=== PATIENT | male | born 1965 | race Two or more races ===

== ENCOUNTER 2017-12-04 10:07 | Emergency (ER) | payer BC ==
--- NOTE | 2017-12-04 11:50 | EDM.PDOC ---
ED HPI GENERAL MEDICAL PROBLEM - General Chief Complaint: General Stated Complaint: MOUTH PAIN Time Seen by Provider: 12/04/17 11:25 Source of Information: Reports: Patient, Family History Limitations: Reports: No Limitations - History of Present Illness INITIAL COMMENTS - FREE TEXT/NARRATIVE: c/o tooth pain x 2d a little worse, has apt with dentist [place] next week says he took Advil x 1 that did not help, daughter says he took Advil x 3 pt speaks uzbek, daughter speaks divehi no visible cavity, he points to pain localized immediately above the tooth, c/w abscess R upper jaw Pain Score (Numeric/FACES): 7 - Related Data Allergies Allergy/AdvReac Type Severity Reaction Status Date / Time No Known Allergies Allergy Verified 12/04/17 10:17 Home Meds: Home Meds Aspirin [Adult Low Dose Aspirin EC] 81 mg PO DAILY 12/04/17 [History] Carvedilol [Coreg] 25 mg PO BID 12/04/17 [History] Lisinopril [Zestril] 20 mg PO DAILY 12/04/17 [History] Penicillin V Potassium 500 mg PO TID #21 tab 12/04/17 [Rx] metFORMIN [Glucophage] 1,000 mg PO BIDMEALS 12/04/17 [History] traMADol HCl [Ultram] 50 mg PO Q6H PRN #6 tablet 12/04/17 [Rx] ED ROS GENERAL - Review of Systems Review Of Systems: See Below Constitutional: Reports: No Symptoms HEENT: Reports: Dental Pain Respiratory: Reports: No Symptoms Cardiovascular: Reports: No Symptoms Endocrine: Reports: No Symptoms GI/Abdominal: Reports: No Symptoms : Reports: No Symptoms Musculoskeletal: Reports: No Symptoms Skin: Reports: No Symptoms Neurological: Reports: No Symptoms Psychiatric: Reports: No Symptoms Hematologic/Lymphatic: Reports: No Symptoms Immunologic: Reports: No Symptoms ED EXAM, GENERAL - Physical Exam Exam: See Below Exam Limited By: No Limitations General Appearance: Alert Throat/Mouth: Other (teeth #1-3 missing, #4 appears intact, gum wnl, mild tender on palpation of tooth and gum laterally but not medially, no STS, no LNs) Neck: Normal Inspection, Supple, Non-Tender, Full Range of Motion. No: Lymphadenopathy (R), Lymphadenopathy (L) Respiratory/Chest: No Respiratory Distress Cardiovascular: Regular Rate, Rhythm Course - Vital Signs Last Recorded V/S: Last Vital Signs Temp 36.4 C 12/04/17 10:12 Pulse 57 L 12/04/17 10:12 Resp 18 12/04/17 10:12 BP 141/92 H 12/04/17 10:12 Pulse Ox 100 12/04/17 10:12 Departure - Departure Time of Disposition: 11:48 Disposition: Home, Self-Care 01 Condition: Good Clinical Impression: Dental abscess - Discharge Information Prescriptions: Penicillin V Potassium 500 mg PO TID #21 tab traMADol HCl [Ultram] 50 mg PO Q6H PRN #6 tablet PRN Reason: Pain Instructions: Dental Abscess Referrals: Montrell Maki MD [Primary Care Provider] - Forms: ED Department Discharge, ED Return to Work/School Form Additional Instructions: For infection, take penicillin VK 500 mg 1 tab 3 times a day for 7 days. For pain, take ibuprofen 200 mg 3 tabs and acetaminophen 500 mg 2 tabs 4 times a day for 2 days, longer if needed. For pain, may also take tramadol 50 mg 1 tab every 6 hours as needed. No alcohol. May work tomorrow. See your dentist next week as scheduled. Return to emergency department if you are feeling worse. Para la infeccin, tome la penicilina VK 500 mg 1 TAB 3 veces al da mariangel 7 junior. Para el dolor, tome ibuprofeno 200 mg 3 Tabs y acetaminofn 500 mg 2 Tabs 4 veces al da mariangel 2 junior, ms tiempo si es necesario. Para el dolor, tambin puede manjinder tramadol 50 mg 1 Tab cada 6 horas segn sea necesario. [place] de alcohol. Maana puede trabajar. Consulte a chandra dentista la prxima semana chelsie est programado. Regrese al Departamento de emergencias si se siente peor.
== END 2017-12-04 12:04 | disposition home or self-care (01) ==
LOC: FB.ED 10:07
DX: K04.7 Periapical abscess without sinus (principal); Z79.82 Long term (current) use of aspirin; Z79.899 Other long term (current) drug therapy
CPT/HCPCS: 99282

== ENCOUNTER 2020-10-11 18:32 | Emergency (ER) | payer BC, MEDICAID ==
--- NOTE | 2020-10-11 19:40 | EDM.PDOC ---
ED HPI GENERAL MEDICAL PROBLEM - General Chief Complaint: Eye Problems Stated Complaint: PAIN IN OUTER RIGHT EYE Time Seen by Provider: 10/11/20 19:35 Source of Information: Reports: Patient History Limitations: Reports: No Limitations (Son translated) - History of Present Illness INITIAL COMMENTS - FREE TEXT/NARRATIVE: Patient went outside to smoke @2 hours ago, and after coming back inside felt pain and a foreign body sensation underneath his right lateral upper eyelid. He thinks the wind might have blown something into his eye. Denies blurred vision. He does not wear contacts. Duration: Hour(s): (2) R eye Pain Score (Numeric/FACES): 6 - Related Data Allergies Allergy/AdvReac Type Severity Reaction Status Date / Time No Known Allergies Allergy Verified 10/11/20 19:03 Home Meds: Home Meds carvediloL [Coreg] 25 mg PO BID 12/04/17 [History] lisinopriL [Zestril] 20 mg PO DAILY 12/04/17 [History] metFORMIN [Glucophage] 1,000 mg PO BIDMEALS 12/04/17 [History] Insulin Glarg,Human.Rec.Analog [Lantus Solostar] 20 units SQ BEDTIME 10/11/20 [History] Meloxicam [Mobic] 7.5 mg BID 10/11/20 [History] Simvastatin 10 mg PO BEDTIME 10/11/20 [History] Past Medical History HEENT History: Reports: Cataract Cardiovascular History: Reports: High Cholesterol, Hypertension Genitourinary History: Reports: Renal Calculus Musculoskeletal History: Reports: Arthritis, Fracture Other Musculoskeletal History: L hand Endocrine/Metabolic History: Reports: Diabetes, Type II, Obesity/BMI 30+ - Infectious Disease History Infectious Disease History: Reports: Chicken Pox - Past Surgical History HEENT Surgical History: Reports: Cataract Surgery Other HEENT Surgeries/Procedures: L eye cataract surgery Cardiovascular Surgical History: Reports: None Male Surgical History: Reports: Ureteral Stent Musculoskeletal Surgical History: Reports: Other (See Below) Other Musculoskeletal Surgeries/Procedures:: L hand surgery Social & Family History - Family History Family Medical History: No Pertinent Family History - Tobacco Use Tobacco Use Status *Q: Current Every Day Tobacco User Years of Tobacco use: 41 Packs/Tins Daily: 0.2 - Caffeine Use Caffeine Use: Reports: Coffee - Recreational Drug Use Recreational Drug Use: No ED ROS GENERAL - Review of Systems Review Of Systems: Comprehensive ROS is negative, except as noted in HPI. ED EXAM GENERAL W FULL EYE - Physical Exam Exam: See Below Exam Limited By: No Limitations General Appearance: Alert, WD/WN, No Apparent Distress Eye Exam: Bilateral Eye: EOMI, PERRL, Other (pterygium (right worse than left)) Eyelids: Right: Foreign Body (removed with a cotton swab from underneath upper eyelid), Lid Everted for Exam Cornea Exam: Right: Examined with Flourescein (No corneal abrasion or ulcer) Extraocular Movements: Bilateral: Intact Pupillary Size: Bilateral: 3 mm Pupillary Reaction: Bilateral: Brisk Anterior Chamber: Bilateral: Normal Appearance Posterior Chamber: Bilateral: Unable to Examine Neck: Full Range of Motion Respiratory/Chest: No Respiratory Distress Neurological: Alert Psychiatric: Normal Affect Skin Exam: Warm, Dry Course - Vital Signs Last Recorded V/S: Last Vital Signs Temp 36.6 C 10/11/20 19:00 Pulse 75 10/11/20 19:00 Resp 18 10/11/20 19:00 BP 161/93 H 10/11/20 19:00 Pulse Ox 100 10/11/20 19:00 - Re-Assessments/Exams Free Text/Narrative Re-Assessment/Exam: 10/11/20 19:42 1 drop of Tetracaine 0.5% was instilled OD, pain and foreign body sensation resolved. Departure - Departure Time of Disposition: 19:43 Disposition: Home, Self-Care 01 Condition: Good Clinical Impression: Foreign body of eye, external, right Qualifiers: Encounter type: initial encounter Qualified Code(s): T15.91XA - Foreign body on external eye, part unspecified, right eye, initial encounter - Discharge Information *PRESCRIPTION DRUG MONITORING PROGRAM REVIEWED*: No *COPY OF PRESCRIPTION DRUG MONITORING REPORT IN PATIENT TISHA: Not Applicable Instructions: Eye Foreign Body, [id number] Referrals: PCP,None [Primary Care Provider] - Additional Instructions: Follow up with Optometry or Ophthalmology if symptoms recur. Sepsis Event Note (ED) - Evaluation Sepsis Screening Result: No Definite Risk - Focused Exam Vital Signs: Vital Signs Temp Pulse Resp BP Pulse Ox 10/11/20 19:00 36.6 C 75 18 161/93 H 100
== END 2020-10-11 19:48 | disposition home or self-care (01) ==
LOC: FB.ED 18:32
DX: T15.91XA Foreign body on external eye, part unspecified, right eye, initial encounter (principal); E78.00 Pure hypercholesterolemia, unspecified; I10 Essential (primary) hypertension; E11.9 Type 2 diabetes mellitus without complications; F17.210 Nicotine dependence, cigarettes, uncomplicated; E66.9 Obesity, unspecified; Z68.32 Body mass index [BMI] 32.0-32.9, adult; Z79.4 Long term (current) use of insulin; Z79.899 Other long term (current) drug therapy
CPT/HCPCS: 99282; 99283